=== PATIENT | male | born 1955 | race Caucasian/White ===

== ENCOUNTER → 2019-08-12 | Outpatient (CLI) | payer SELFPAY ==
--- NOTE | 2019-08-12 09:45 | RAD_ITS ---
STUDY: X-RAY CHEST REASON FOR EXAM: Male, 63 years old. H/O KIDNEY CA, RIGHT NEPHRECTOMY TECHNIQUE: PA and lateral views of the chest. COMPARISON: Comparison is made with prior study dated September 09, 2016. FINDINGS: There now is evidence of a 1.3 cm x 1.3 cm well-defined nodule in the medial right mid lung. Correlation with a CT scan is recommended for further evaluation. Hyperinflation. There is no demonstrated pleural abnormality. Normal size heart. Normal mediastinum and maria dolores. Normal visualized pulmonary arteries. Normal visualized aortic arch and descending thoracic aorta. There are diffuse degenerative changes of the visualized thoracic spine. Normal visualized ribs, clavicles, and shoulders. There is no demonstrated abnormality of the visualized soft tissue structures of the upper abdomen. RAD/Chest PA and Lateral IMPRESSION: There is a new 1.3 cm x 1.3 cm well-defined nodule in the medial midportion of the right lung. Correlation with a CT scan is recommended. Hyperinflation. Electronically Signed: Saad Faria, at 10:25 EDT , Service support ,
== END | disposition home or self-care (01) ==
LOC: RAD 09:37
PROVIDERS: PCP Nurse Practitioner Family; Referring Provider Urology; Visit Provider Urology
DX: Z85.528 Personal history of other malignant neoplasm of kidney (principal)
CPT/HCPCS: 71046

== ENCOUNTER → 2019-08-15 | Outpatient (CLI) | payer SELFPAY ==
--- NOTE | 2019-08-15 15:57 | CT_ITS ---
STUDY: CT CHEST WITH CONTRAST REASON FOR EXAM: Male, 63 years old. ABNORMAL LUNG FINDING. KIDNEY CANCER WITH RIGHT NEPHRECTOMY 5 YEARS AGO. DELAYS THROUGH LIVER IN CASE HEMANGIOMA RADIATION DOSAGE (If Supplied By Facility): CTDIvol = ( 7.48 ) mGy, DLP = ( 1035.93 ) mGycm TECHNIQUE: Transaxial imaging was performed following intravenous administration of IV 75mL Isovue-370. Multiplanar coronal and sagittal images were reformatted. Individualized dose optimization techniques were used for this CT. COMPARISON: None. FINDINGS: Nodule within the right upper lobe abutting the major fissure with mild surrounding groundglass opacity and measuring approximately 1 cm in maximum dimension. Calcified nodule within the subpleural region of the right lower lobe measuring 1.5 cm . Remainder of the bilateral lung villagran are clear. There is no demonstrated pleural abnormality. Normal heart and pericardium. Mediastinal lymph nodes demonstrated, largest seen in the right paratracheal region measuring 1.3 x 0.7 cm. mediastinum. Normal hilar regions. Normal enhanced pulmonary arteries. Normal aorta arch and descending thoracic aorta. Normal enhancement of the aorta and pulmonary arteries with no pulmonary embolus or aortic dissection. Normal osseous structures. Upper abdomen: Large liver lesion measuring 6.6 x 7.5 cm in axial dimension, increased in the interval from the previous examination of 2.5 x 2.2 cm with decreased central attenuation and heterogeneous peripheral enhancement concerning for neoplasm. Left upper renal pole cysts largest measuring 3.[address]/Chest WITH Contrast IMPRESSION: Right-sided lung nodules, one reveal calcifications and therefore represent benign process. Second, noncalcified nodule may be associated with metastatic disease, new since previous examination of 2012. If indicated, follow-up with CT examination in 6 months to document stability or PET scan evaluation, depending on history and clinical presentation. Electronically Signed: Autumn Lion MD at 3:07 EDT , Service support ,
[2019-08-15 16:05] LABS: CREATININE FINGERSTICK 1.6 mg/dL (0.70-1.30)
== END | disposition home or self-care (01) ==
PROVIDERS: PCP Nurse Practitioner Family; Referring Provider Urology; Visit Provider Urology
DX: R91.8 Other nonspecific abnormal finding of lung field (principal); Z85.528 Personal history of other malignant neoplasm of kidney
CPT/HCPCS: 71260; Q9967

== ENCOUNTER → 2019-08-29 | Outpatient (CLI) | payer SELFPAY ==
[2019-08-25 13:06] LABS: Platelet Count 304 K/mm3 (150-450)
[2019-08-25 13:20] LABS: International Normalized Ratio 1.1; Prothrombin Time (Protime)PT. 13.2 SECONDS (11.7-14.9)
[2019-08-25 13:21] LABS: Partial Thromboplast Time 29.5 Seconds (24.1-36.2)
[2019-08-29] VITALS (9 sets, daily range): BP systolic 99–155; BP diastolic 61–95; PULSE 70–84; RESP 12–20; TEMP 36.8; O2SAT 95–100; BMI 27.2
--- NOTE | 2019-08-29 | ASPIGT_PTH ---
PATIENT: RAEGAN LOREDO LOC: [place] U#:[id number] AGE/SX: 63/M ROOM: RE08/29/[address]: Dr. Shemar Key MD : [id number] BED: DIS: 08/29/2019 SPEC #: [id number] RECD: 08/29/19 11:03 STATUS: LITA RECarlos #: [id number] JACK: 08/29/19 00:[address]: Shemar Key DEPT: SURGICAL PATHOLOGY RECD BY: Jaden Ewing ENTERED: 08/29/19 11:03 SP TYPE: ASP RAD OTHR DR: Dayanara Cassidy, MARKETING SPECIALIST-C Tissues: Liver, NOS Procedures: FNA Specimen Adequacy Special Stain Group II Surgery Specimen Level IV Imprint (control) HEADER OPERATION: CT-guided liver biopsy PRE-OP DIAGNOSIS: Liver mass TISSUE SUBMITTED: Liver mass 18 gauge core x3 MICROSCOPIC DIAGNOSIS Liver, CT-guided core biopsy: Consistent with metastatic carcinoma, favor renal primary, clear cell renal cell carcinoma. See comment. NICHOLE:inez 09/01/19 COMMENT The specimen is evaluated at the time of biopsy by Dr. Woodward. Immediate Evaluation = Malignant cells present consistent with metastatic renal cell carcinoma. The tumor shows Winifred grade 1-2. Immunohistochemistry ([id number]) supports the above diagnosis. Clinical correlation and appropriate follow up are necessary. Please make reference to previous specimen ([id number]) right kidney, radical nephrectomy with diagnosis of consistent with clear cell carcinoma. Case has been reviewed in consultation with Dr. Fleming who concurs with the above diagnosis. IDC:AM MICROSCOPIC DESCRIPTION Slides are reviewed. GROSS DESCRIPTION Received in fixative is one container labeled with the patient's name and designated liver mass, CTguided core biopsy. The specimen consists of multiple irregular fragments of romero soft tissue that in aggregate measure 1.5 x 0.2 x 0.1 cm. The specimen is totally submitted in one cassette. Two touch imprints are prepared at the time of core biopsy. / NCIHOLE:inez 08/29/19 TC:0 CPT: 84896, 96227
--- NOTE | 2019-08-29 | IMM_PTH ---
PATIENT: RAEGAN LOREDO LOC: CT U#:[id number] AGE/SX: 63/M ROOM: RE08/29/[address]: Dr. Shemar Key MD : 1955 BED: DIS: 08/29/2019 SPEC #: [id number] RECD: 09/01/19 11:20 STATUS: LITA REQ #: [id number] JACK: 08/29/19 00:[address]: Shemar Key DEPT: IMMUNOHISTOCHEMISTRY RECD BY: Brittany Canada ENTERED: 09/01/19 11:21 SP TYPE: IMMUNO OTHR DR: Dayanara Cassidy, FLAKER OPERATOR-C Tissues: Liver, NOS Procedures: RCC (add) NAPSIN A (add) CD10 (add) CK20 (add) CK5-6 (add) CK7 (add) CK8 (add) HEP PAR (add) TTF1 (add) Vimentin (add) Pankeratin (initial) P40 (add) PSAP (add) PHYSICIAN & [address] [address] SPECIMEN INFORMATION: Tissue Source: Liver, CT-guided biopsy Clinical Info: Liver mass Specimen Number: [id number] CPT code: 28689, 76271 x12 METHODOLOGY: Deparaffinized sections of prefer/formalin-fixed tissue or PAP/DQ stained slides are incubated with monoclonal/polyclonal antibodies/oligonucleotide probes. Localization is made via biotin free immunoperoxidase method. Appropriate controls are performed and reacted as expected. Results on target cell population are indicated in the following table: RESULTS: ANTIBODY / CLONE RESULT AE1-3 (AE1/AE3/PCK26) positive CK7 (OV-TL12/30) negative CK8 (84qpkqA38) positive CK20 (KS20.8) negative CD10 (56C6) positive Vimentin (V9) positive TTF-1 (8G7G3/1) negative Napsin A (Rabbit Polyclonal) negative HepPar (OCh1E5) negative RCC (PN-15) positive PSAP (PASE/4LJ) negative CK5-6 (D5 & 1684) negative P40 (BC28) negative These tests were developed and their performance characteristics determined by [facility]. They may not have been cleared or approved by the U.S. Food and Drug Administration. The FDA has determined that such clearance or approval is not necessary. The above immunohistochemical/dualISH markers are ordered and reviewed by the Pathologist. INTERPRETATION: Liver, CT-guided biopsy: Metastatic carcinoma, consistent with renal primary, clear cell renal cell carcinoma. SJ:inez 09/02/19
--- NOTE | 2019-08-29 08:38 | CT_ITS ---
PROCEDURE: CT DIRECTED CORE LIVER BIOPSY INDICATION: Male, 63 years old. Liver mass, Hx renal cell cancer with right nephrectomy 2012. PHYSICIAN: Dr. Giana Dao CONSENT: Written informed consent was obtained having explained the risks, benefits and alternatives in detail with the patient who accepted the risks and agreed to proceed. Laboratory review and clinical assessment was performed. CONSCIOUS SEDATION PROTOCOL: The Drugs used were: 2 mg Versed, IV., and 50 mcg Fentanyl, IV. The sedation time was: 34 minutes. Conscious sedation was started at 9:39 AM and terminated at 10:13 AM. The conscious sedation protocol was independently monitored. RADIATION DOSAGE (If Supplied By Facility): CTDIvol = ( 17 ) mGy, DLP = ( 805.89 ) mGycm Individualized dose optimization techniques were used for this CT. TECHNIQUE: Using CT image guidance with image documentation, a suitable location in the right lobe of the liver was identified. Using a right lateral approach, puncture of the liver was uneventful with an 18-gauge core needle system. 3 18-gauge core samples were obtained, and submitted in formalin to the pathologist for further assessment. Followup CT scan revealed no distinct sequelae. CT/Biopsy/Inj or Needle Placement IMPRESSION: 1. CT directed core needle biopsy of the liver, using CT image guidance with image documentation as described. 2. Conscious Sedation protocol utilized with independent monitoring. Electronically Signed: Saad Faria, at 11:18 EDT , Service support ,
[2019-08-29] MEDS: Midazolam 2 MG/2 ML Syringe IV (09:39)
[2019-08-29] MEDS: fentaNYL 100 MCG/2 ML Ampul IV (09:39)
== END | disposition home or self-care (01) ==
PROVIDERS: PCP Nurse Practitioner Family; Referring Provider Urology; Visit Provider Urology
DX: R16.0 Hepatomegaly, not elsewhere classified (principal)
CPT/HCPCS: 47000; 36415; 77012; 85049; 85610; 85730; 88172; 88305; 88307; 88313; 88341; 88342; 99156; 99157; J7040; A4216

== ENCOUNTER → 2020-09-07 06:07 | Outpatient (CLI) | payer MEDICAID, SELFPAY ==
[2019-08-29 09:16] VITALS: BMI 27.2
--- NOTE | 2020-09-07 06:37 | MRI_ITS ---
STUDY: MRI BRAIN WITH AND WITHOUT CONTRAST REASON FOR EXAM: Male, 64 years old. LEFT INFERIOR HOMONYMOUS QUADRANTANOPIA TECHNIQUE: Standardized multiplanar fat and water weighted pulse sequences were obtained. 17ML IV DOTAREM was administered for the contrast portion of the examination. COMPARISON: None. FINDINGS: There is disproportionate ventricular enlargement with prominence of the anterior horns and temporal tips of the bilateral lateral ventricles. There is confluent periventricular hyperintensity cloaking the lateral ventricles. There is thinning with bowing of the corpus callosum. There is moderate enlargement of the third ventricle. The findings are highly suggestive of normal pressure hydrocephalus (NPH). Normal white matter tracts of the supratentorial brain. There is no evidence for recent intracranial ischemia or other cause of cytotoxic edema on diffusion weighted imaging (DWI). Normal T2* images of the brain without demonstrated susceptibility artifact. There is no demonstrated hemosiderin stain. Normal bilateral basal ganglia. Normal thalami. There is no extra-axial fluid accumulation. Normal flow voids within the major intracranial circulation suggesting patency by spin echo criteria. Normal venous enhancement. There is no enhancing intra-axial or extra-axial abnormality. Normal sella turcica, pituitary gland, infundibular stalk, optic chiasm and hypothalamus. Normal tectal plate and pineal gland. Normal midbrain, jefry and medulla. Normal cerebellum. Normal basal cisterns. Normal bilateral temporal bones. Normal bilateral internal auditory canals. No demonstrated orbital abnormality, within the constraints of a routine brain study. Normal visualized paranasal sinuses. Normal calvarium and skull base. Normal visualized soft tissue structures. Normal visualized upper cervical spine. 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 No acute infarct. Electronically Signed: Eagle Christina MD at 8:44 EDT Tel , Service support ,
== END ==
PROVIDERS: PCP Nurse Practitioner Family; Referring Provider Ophthalmology; Visit Provider Ophthalmology
DX: H53.462 Homonymous bilateral field defects, left side (principal)
CPT/HCPCS: 70553; A9575

== ENCOUNTER 2021-07-21 10:18 | Emergency (ER) | payer MEDICAID, SELFPAY ==
[2021-07-21 10:18] VITALS: BP 125/74; PULSE 107; RESP 18; TEMP 37; O2SAT 99; BMI 27.5
--- NOTE | 2021-07-21 10:52 | EKG12_ITS ---
Test Reason : FEVER Blood Pressure : / mmHG Vent. Rate : 092 BPM Atrial Rate : 092 BPM P-R Int : 150 ms QRS Dur : 082 ms QT Int : 340 ms P-R-T Axes : 049 026 019 degrees QTc Int : 420 ms Normal sinus rhythm Normal ECG When compared with ECG of 02-JAN-2013 15:07, No significant change was found Confirmed by CRISTIANA GOMEZ, GENESIS ([id number]), continuity editor NANCY PEREZ ([id number]) on 07/26/2021 10:44:32 AM Referred By: YARED Confirmed By:GENESIS ZENDEJAS MD
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
[2021-07-21 11:10] VITALS: BP 118/83; PULSE 93; RESP 16
[2021-07-21 11:23] LABS: Absolute Lymphocyte Count 0.44 X10^3/uL (0.83-4.51); Absolute Neutrophil Count 3.5 X10^3/uL (2.0-7.7); Basophil# 0.02 X10^3/uL; Basophil% 0.4 % (0-1); Eosinophil# 0.28 X10^3/uL; Eosinophils% 5.9 % (0-5); Hematocrit 45.5 % (40-54); Hemoglobin 14.8 g/dL (13.0-16.5); Lymphocyte # 0.44 X10^3/ul (0.83-4.51); Lymphocyte % 9.2 % (19-41); Mean Corp Hgb Conc 32.5 g/dL (32-36); Mean Corpuscular Hgb 31.6 pg (27.0-32.0); Mean Platelet Vol. 8.7 fl (6.2-12.0); Monocyte# 0.53 X10^3/uL; Monocyte% 11.1 % (0-10); NRBC Flagged by Analyzer 0 % (0-5); Neutrophil # 3.49 X10^3/uL (2.7-7.7); Neutrophil % 73.2 % (47-70); POSITIVE DIFFERENTIAL YES; Platelet Count 213 K/mm3 (150-450); RBC Distribution Width CV 14.3 % (11.6-14.6); RBC Distribution Width SD 51.5 fl (35.1-43.9); Red Blood Count 4.69 M/mm3 (4.6-6.2); White Blood Count 4.8 K/mm3 (4.4-11.0)
[2021-07-21 11:25] VITALS: TEMP 37.2
[2021-07-21] MEDS: 0.9% Normal Saline 1,000 ML 999 ML IV (11:25)
[2021-07-21] MEDS: Acetaminophen 500 MG Tablet 1000 MG PO (11:25)
[2021-07-21 11:27] LABS: Differential Indicated SCAN CRITERIA MET
[2021-07-21 11:38] LABS: ALB/GLOB Ratio 0.7 RATIO (0.9-2.4); AST(SGOT) 39 U/L (15-37); Alanine Aminotransfer ALT/SGPT 48 U/L (16-61); Albumin, Serum 2.8 g/dL (3.2-5.0); Alkaline Phosphatase 76 U/L (45-117); Anion Gap 5 (5-15); BUN 23 mg/dL (7-18); BUN/Creat Ratio 15.9 RATIO (10-20); Calcium,Total 8.8 mg/dL (8.5-10.1); Chloride 107 mmol/L (98-107); Creatinine, Serum 1.45 mg/dL (0.70-1.30); EST Glomerular Filtration Rate 52 mL/min (>60); Est Glom Filt Rate - Afr Amer 63 mL/min (>60); Estimated Creatinine Clearance 50.45 ml/min; Globulin 4.1 g/dL (2.2-4.2); Glucose 118 mg/dL (74-106); Protein, Total 6.9 g/dL (6.4-8.2); Sodium Level 138 mmol/L (136-145)
[2021-07-21 11:39] LABS: International Normalized Ratio 1.1; Partial Thromboplast Time 28.3 Seconds (24.1-36.2); Prothrombin Time (Protime)PT. 13.1 SECONDS (11.7-14.9)
[2021-07-21 11:49] LABS: Lactic Acid 1.9 mmol/L (0.4-1.9)
--- NOTE | 2021-07-21 11:50 | RAD_ITS ---
INDICATION: cough EXAMINATION/TECHNIQUE: X-RAY - XR Chest 1 View COMPARISON: Chest radiograph from 08/12/2019 FINDINGS: Support devices: None. No focal consolidations, effusions, or sizable pneumothorax. Heart size is stable. No acute findings in the bones or soft tissues. RAD/Chest 1 View (Portable) IMPRESSION: No acute findings. Stable exam since 08/12/2019. Electronically Signed: Tulio Patton, at 12:07 EDT ,
[2021-07-21 11:54] LABS: Differential Comment SCANNED
[2021-07-21] MEDS: Ceftriaxone 1 GM/50 ML BAG IV (12:42)
[2021-07-21 12:43] VITALS: BP 120/80; PULSE 89; RESP 18; TEMP 37.2; O2SAT 98
[2021-07-21 13:18] VITALS: BP 108/69; PULSE 87; RESP 18; O2SAT 100
== END 2021-07-21 13:30 | disposition home or self-care (01) ==
PROVIDERS: Emergency Provider Physician Assistant; PCP Nurse Practitioner Family; Visit Provider Physician Assistant
DX: L90.5 Scar conditions and fibrosis of skin (principal); C79.9 Secondary malignant neoplasm of unspecified site; C64.1 Malignant neoplasm of right kidney, except renal pelvis; E11.9 Type 2 diabetes mellitus without complications; T45.1X5A Adverse effect of antineoplastic and immunosuppressive drugs, initial encounter; L27.0 Generalized skin eruption due to drugs and medicaments taken internally; T36.1X5A Adverse effect of cephalosporins and other beta-lactam antibiotics, initial encounter; Z90.5 Acquired absence of kidney; Z79.82 Long term (current) use of aspirin; Z79.899 Other long term (current) drug therapy
CPT/HCPCS: 71045; 80053; 83605; 85025; 85610; 85730; 87040; 87070; 87077; 87186; 87205; 87811; 93005; 96361; 96365; 99284; J7030; A4216

== ENCOUNTER 2021-08-04 14:00 | Outpatient (RCR) | payer MEDICAID, SELFPAY ==
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
[2021-08-04 14:16] VITALS: BP 108/68; PULSE 89; RESP 20; TEMP 36.4
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
== END 2021-08-04 15:50 | disposition home or self-care (01) ==
LOC: WC 14:00
PROVIDERS: PCP Nurse Practitioner Family; Visit Provider Nurse Practitioner Family
DX: S41.101A Unspecified open wound of right upper arm, initial encounter (principal); C64.9 Malignant neoplasm of unspecified kidney, except renal pelvis; E11.9 Type 2 diabetes mellitus without complications; L90.5 Scar conditions and fibrosis of skin
CPT/HCPCS: 11042; 87070; 87075; 87077; 87205; 99203; 99213; G0463

== ENCOUNTER → 2022-08-09 | Outpatient (CLI) | payer MEDICAID, SELFPAY ==
--- NOTE | 2022-08-09 09:56 | US_ITS ---
STUDY: SCROTUM ULTRASOUND REASON FOR EXAM: Male, 66 years old. HX RENAL CA/SWELLING R TESTICLE TECHNIQUE: Ultrasound evaluation of the scrotum was performed with color Doppler and static tsai-scale imaging. COMPARISON: None. FINDINGS: RIGHT TESTICLE INTRATESTICULAR: There is a normal size of the right testicle. The right testicle measures 4.5 cm x 3 cm x 2.1 cm. There is a homogenous echotexture. There is normal arterial and normal venous vascularity. There is no demonstrated right testicular mass or cyst. EXTRATESTICULAR: The epididymis is normal in size. The epididymis head measures 1.2 cm x 1 cm x 1.7 cm. There is normal vascularity of the epididymis. There is no demonstrated epididymal cystic structure. There is a large hydrocele. There is no demonstrated varicocele. There is no demonstrated extratesticular mass or cyst. LEFT TESTICLE INTRATESTICULAR: There is a normal size of the left testicle. The left testicle measures 3.9 cm x 2.2 cm x 2.4 cm. There is a homogenous echotexture. There is normal arterial and normal venous vascularity. There is no demonstrated left testicular mass or cyst. EXTRATESTICULAR: The epididymis is normal in size. The epididymis head measures 0.9 cm x 1.5 cm x 1.3 cm. There is normal vascularity of the epididymis. There is no demonstrated epididymal cystic structure. There is no demonstrated hydrocele. There is no demonstrated varicocele. There is no demonstrated extratesticular mass or cyst. US/Testicular with Arterial Flow IMPRESSION: Large right hydrocele. Electronically Signed: Saad Faria MD at 11:13 EDT ,
== END | disposition home or self-care (01) ==
LOC: US 09:51
PROVIDERS: PCP Nurse Practitioner Family; Referring Provider Nurse Practitioner Family; Visit Provider Nurse Practitioner Family
DX: N50.89 Other specified disorders of the male genital organs (principal); C78.7 Secondary malignant neoplasm of liver and intrahepatic bile duct; C78.01 Secondary malignant neoplasm of right lung; N18.30 Chronic kidney disease, stage 3 unspecified
CPT/HCPCS: 76870; 93976